=== PATIENT | male | born 1955 | race Caucasian/White ===

== ENCOUNTER 2020-04-08 00:05 | Emergency (ER) | payer MEDICARE, OTHER ==
[~2020-04-08] VITALS: Ht 170.2 cm; Wt 89.5 kg
--- NOTE | 2020-04-08 00:47 | PHYS DOC ---
Past History Past Surgical History: Hip Replacement Smoking: Non-smoker Alcohol Use: Occasionally Drug Use: None General Adult EDM: Chief Complaint: HIP PAIN HPI: HPI: Patient is a 65-year-old male who presents with right hip pain. States that the pain is located in his posterior leg and radiates down his right calf to the top of his foot. He describes the pain as a sharp shooting pain. He denies any aggravating or alleviating factors. He has taken 8 tablets of ibuprofen and 1 Flexeril tablet with no relief. He states that the pain began last night gradually after a physical therapy session. He has never had pain like this in the past. He denies any fever or chills, back pain, urinary or bowel inconti nence or saddle anesthesia. He denies any falls or traumas to the area. Review of Systems: Review of Systems: Constitutional: Denies fever or chills Eyes: Denies redness or eye pain HENT: Denies nasal congestion or sore throat Respiratory: Denies cough or shortness of breath Cardiovascular: Denies chest pain or palpitations GI: Denies abdominal pain, nausea, or vomiting : Denies dysuria or hematuria Musculoskeletal: Admits hip and leg pain, denies back pain or joint pain Integument: Denies rash or skin lesions Neurologic: Denies headache, focal weakness or sensory changes Complete systems were reviewed and found to be within normal limits, except as documented in this note. Physical Exam: PE: Constitutional: Well developed, well nourished, no acute distress, non-toxic appearance HENT: Normocephalic, atraumatic Eyes: PERRL, EOMI, conjunctiva normal, no discharge Neck: Normal range of motion, no tenderness, supple Lungs & Thorax: No respiratory distress, equal chest rise and fall Abdomen: Soft, no tenderness Skin: Warm, dry, no erythema, no rash Back: No tenderness, no CVA tenderness Extremities: No tenderness, ROM intact, no edema Neurologic: Alert and oriented X 3, normal motor function, normal sensory function, no focal deficits noted Psychologic: Affect normal, judgment normal EKG: EKG: [] Radiology/Procedures: Radiology/Procedures: [] Course & Med Decision Making: Course & Med Decision Making Patient is a 65-year-old male presenting with right hip pain. Pain is likely related to sciatic nerve irritation. Plan to treat symptomatically with Dilaudid, Flexeril, short course of steroids Pertinent Labs and Imaging studies reviewed. (See chart for details) Patient stable for discharge with outpatient follow-up with PCP. Discussed findings and plan with patient, who acknowledges understanding and agreement. Kimberly Disclaimer: Kimberly Disclaimer: This electronic medical record was generated, in whole or in part, using a voice recognition dictation system. Departure Departure: Impression: Primary Impression: Sciatica of right side Disposition: 01 DC HOME SELF CARE/HOMELESS Condition: STABLE Referrals: BRITANY SUAREZ MD (PCP) Patient Instructions: Sciatica, [id number] Additional Instructions: ICE area of discomfort 20 min on the leave off next 20 mins. Repeat several times daily for next few days. May also use over the counter Ibuprofen for pain. Only take 3 over the counter tabs (600mg total per dose) three times daily as needed for pain. Do NOT take more than this dose. Call and make an appointment to see your family doctor regarding your chronic pain medications and/or adjustment of your chronic pain medications. May also call and make an appointment to see a spray painting machine operator regarding your pain. Dr. Krzysztof Tavarez Address: [address] [place] [address] Scripts Prednisone (PREDNISONE) 20 Mg Tablet 2 TAB PO DAILY for Sciatica, #8 TAB Start this prescription tomorrow, 04/09/20 Prov: CAMILLE SILVERMAN DO 04/08/20 Orphenadrine Citrate (ORPHENADRINE CITRATE) 100 Mg Tablet.er 1 TAB PO BID PRN for MUSCLE PAIN, #14 TAB Prov: CAMILLE SILVERMAN DO 04/08/20 CAMILLE SILVERMAN DO Apr 08, 2020 00:47
[2020-04-08] MEDS ORDERED: PRED20TA PO (00:52)
[2020-04-08] MEDS ORDERED: ORPH-16 PO (00:52)
[2020-04-08] MEDS ORDERED: HYDROmorphone PF 2 MG/ML VIAL IM ONE (01:00)
[2020-04-08] MEDS ORDERED: ORPHENADRINE CITRATE 60 MG/2 ML VIAL. IM ONE (01:00)
[2020-04-08] MEDS ORDERED: DEXAMETHASONE 4 MG TABLET PO ONE (01:00)
[2020-04-08 02:00] VITALS: BP 136/64
== END 2020-04-08 02:00 | disposition home or self-care (01) ==
LOC: ER 00:05
DX: M54.31 Sciatica, right side (principal)
CPT/HCPCS: 96372; 99284; J1170; J2360; J8540